=== PATIENT | male | born 1940 | race Caucasian/White ===

== ENCOUNTER 2019-06-02 07:26 | Day surgery (SDC) | payer OTHER ==
[~2019-06-02] VITALS: Ht 172.7 cm; Wt 95.7 kg
[~2019-06-02 07:26] MED LIST: AMLO25TA PO; ATOR40TA75 PO; BIMA01SOL OD; FURO40TA2 PO; GLIP10TA PO; LANTINJ4 SC; LEVO50TA5 PO; LISI40TA PO; LR 1,000 ML IV ONE; METO37.5 PO; QC A650T3 PO; RABE1TAB PO; TIMO0.5S39 OP; VICT18IN SC; VITA500T PO
[2019-06-02] MEDS ORDERED: THROMBIN SOLN 5,000 UNITS VIAL As Ordered ONE (08:56)
[2019-06-02] MEDS ORDERED: CETACAINE SPRAY 5GM As Ordered ONE (08:56)
[2019-06-02] MEDS ORDERED: EPINEPHrine 1MG/10ML SYRINGE 1.5IN As Ordered ONE (08:56)
[2019-06-02] MEDS ORDERED: LIDOCAINE 1% SDV INJ 30 ML VIAL As Ordered ONE (08:57)
[2019-06-02] MEDS ORDERED: LIDOCAINE VISCOUS 2% SOLN 15ML UDC As Ordered ONE (08:57)
[2019-06-02] MEDS ORDERED: PROPOFOL 200 MG/20 ML VIAL As Ordered ONE (10:22)
[2019-06-02] MEDS ORDERED: MIDAZOLAM INJ 2 MG/2 ML VIAL (J2250) As Ordered ONE (10:22)
[2019-06-02] MEDS ORDERED: ROCURONIUM BROMIDE 50 MG/5 ML VIAL As Ordered ONE (10:22)
[2019-06-02] MEDS ORDERED: LIDOCAINE 2% INJ 100 MG/5 ML SDV (FOR ANES.) As Ordered ONE (10:22)
[2019-06-02] MEDS ORDERED: PHENYLephrine HCL 500 MCG/5 ML (100MCG/ML) SYRINGE (J2370) As Ordered ONE (10:23)
[2019-06-02] MEDS ORDERED: SUGAMMADEX SODIUM 500 MG/5 ML VIAL (BRIDION) As Ordered ONE (10:23)
[2019-06-02] MEDS ORDERED: dexameTHASONE 4 MG/ML 1ML VIAL (J1100) As Ordered ONE (10:23)
[2019-06-02] MEDS ORDERED: fentaNYL 100 MCG/2 ML INJECTION (J3010) As Ordered ONE (10:23)
[2019-06-02] MEDS ORDERED: ONDANSETRON 4MG/2ML VIAL (J2405) As Ordered ONE (10:23)
[2019-06-02] MEDS ORDERED: VASOPRESSIN INJ 20 UNITS/ML VIAL As Ordered ONE (10:23)
--- NOTE | 2019-06-02 10:33 | RO ---
DATE OF SERVICE: 06/02/2019 PREOPERATIVE DIAGNOSES: Left upper lobe nodule, abnormal chest CT. POSTOPERATIVE DIAGNOSES: Left upper lobe nodule, abnormal chest CT. FINDINGS: Smokers airway. PROCEDURE: Bronchoscopy with electromagnetic navigation and endobronchial ultrasound for staging. PROCEDURALIST: Dr. Mata WINDOW SYSTEMS ADMINISTRATOR: None. ANESTHESIA: General. Please refer to their records for details. SPECIMENS OBTAINED: 1. Cyto needle brush of the left upper lobe. 2. Transbronchial forceps biopsies left upper lobe. 3. Fine needle aspiration left upper lobe. 4. Fine needle aspiration left hilar node under EBUS. ESTIMATED BLOOD LOSS: Less than 5 mL. DESCRIPTION OF PROCEDURE: After informed consent was reviewed with the patient in the preoperative area, he was brought back to OR number 8 which is a pre-mapped room. Time out was performed with two patient identifiers identifying correct site, correct procedure. The patient was intubated with an 8.5 endotracheal tube and the case was handed over to me. Time out was then again repeated confirming correct site, correct procedure and correlating with the name and date of on the navigation CT. Cetacaine spray was then used to anesthetize the airway. 1T190 scope was then introduced into the endotracheal tube. All airways were viewed and suctioned. There was a minimal saber shape to the trachea. Terra was sharp. Right and left mainstem was normal. The trachea was midline. There were no endotracheal lesions. Minimal amounts of mucus. RB 1 through 3 simply showed banding, some pitting. RB 4 through 10 showed banding and pitting with minimal amounts of mucus. Minimal hypervascularity of the airway without any endobronchial lesions. Right mainstem bronchus intermedius was normal. Left mainstem bronchus was normal. LB 1 through 10 was normal without endobronchial lesions. There was banding and pitting. The 1T190 scope was then retracted into the endotracheal tube. The LG guide was then inserted and automatic registration was performed and confirmed. The target #1 in the left upper lobe anterior segment was easily navigated to within 4 mm from the center of the lesion. This was confirmed under fluoroscopy. The guide was removed, the sheath remained. Cyto needle brush was then passed. This was followed by forceps biopsies and [facility] FNA. After adequate sampling the sheath was removed. Hemostasis was assured and the 1T190 bronchoscope was removed. The endobronchial ultrasound linear probe was then inserted and the hilar area was viewed. There was a very small, approximately 7 mm node that was biopsied. Fine needle aspiration was taken of this lesion. I also viewed the subcarinal area. The subcarinal node was very flat, 5 mm in maximal dimension. Was not amenable to biopsy. The endobronchial ultrasound was removed. The 1T190 scope was reinserted to ensure hemostasis. All airways were suctioned. Bronchoscope was removed. The patient is in recovery. Postprocedure chest x- ray is pending. YSABEL
--- NOTE | 2019-06-02 10:42 | REP ---
Chest x-ray: Single view. History: Postop. Post bronchi. No comparison imaging. Findings: Oxygen delivery tubing and EKG monitoring electrodes are seen overlying the chest. Heart size is borderline. No asael pleural effusion is seen. Pulmonary vasculature appears somewhat congested and interstitial markings are diffusely prominent. There is no evidence of pneumothorax. Electronically Signed by Steven Cam MD 06/02/2019 10:33 A
[2019-06-02] MEDS ORDERED: LR 1,000 ML IV SCH (10:45)
[2019-06-02] MEDS ORDERED: ONDANSETRON 4MG/2ML VIAL (J2405) IV PRN (10:45)
[2019-06-02] MEDS ORDERED: oxyCODONE 5MG TAB PO PRN (10:45)
[2019-06-02] MEDS ORDERED: METOCLOPRAMIDE INJ 10MG/2ML VIAL (J2765) IV PRN (10:45)
[2019-06-02] MEDS ORDERED: fentaNYL 100 MCG/2 ML INJECTION (J3010) IV PRN (10:45)
[2019-06-02] MEDS ORDERED: PROMETHAZINE INJ 25 MG/ML VIAL (J2550) IV PRN (10:45)
[2019-06-02 11:07] VITALS: BP 120/73
== END 2019-06-02 11:20 | disposition home or self-care (01) ==
LOC: M SDC 07:26
PROVIDERS: ATTEND Internal Medicine Pulmonary Disease
DX: C34.12 Malignant neoplasm of upper lobe, left bronchus or lung (principal); J43.9 Emphysema, unspecified; I10 Essential (primary) hypertension; E11.9 Type 2 diabetes mellitus without complications; E78.5 Hyperlipidemia, unspecified; E03.9 Hypothyroidism, unspecified; K21.9 Gastro-esophageal reflux disease without esophagitis; Z79.4 Long term (current) use of insulin; Z79.84 Long term (current) use of oral hypoglycemic drugs; Z79.899 Other long term (current) drug therapy; Z87.891 Personal history of nicotine dependence
CPT/HCPCS: 31623; 31628; 31629; 31652; 71045; 76000; 88104; 88173; 88305; 88313; A4648; J1100; J2250; J2370; J2405; J3010

== ENCOUNTER → 2019-06-17 | Outpatient (CLI) | payer OTHER ==
[~2019-06-17] MED LIST changes: -LR 1,000 ML IV ONE
--- NOTE | 2019-06-17 11:43 | PFTRPT ---
Height: 68.00 Inches Weight: 215.00 Lbs BSA: 2.11 Diagnosis: R91.8 DATE OF PROCEDURE: 06/17/2019 ORDERED BY: Dr. Mata Spirometry: Pre and post bronchodilator study of excellent technical quality. Forced vital capacity normal. FEV1 in proportion. Obstructive index is, therefore, normal. Flow Volume Loop: Expiratory limb of the flow volume loop does suggest some nonspecific limitations. No significant bronchodilator response identified. Lung Volumes: Total lung capacity normal. Residual volume is in proportion. Diffusing Capacity: Diffusing capacity is reduced and does not correct for alveolar volume. Hemoglobin: Hemoglobin acceptable at 13.7. Airway Mechanics: Airway resistance and conductance are normal. IMPRESSION: Nonspecific reduction with diffusing capacity impairment. Please correlate clinically. MTDD
== END ==
LOC: M CARPUL 11:00
PROVIDERS: ATTEND Internal Medicine Pulmonary Disease
DX: R91.8 Other nonspecific abnormal finding of lung field (principal); J43.9 Emphysema, unspecified